=== PATIENT | male | born 1960 | race Caucasian/White ===

== ENCOUNTER 2017-12-21 10:53 | Outpatient (CLI) | payer MEDICAID, SELFPAY ==
--- NOTE | 2017-12-21 12:00 | DI.US_ITS ---
SYMPTOMS/DIAGNOSIS: CALF PAIN, LEFT, M79.662, POSTERIOR KNEE PAIN, RECENTLY DROVE 3000 MILES DUPLEX VENOUS ULTRASOUND, LEFT LOWER EXTREMITY: Duplex evaluation of the deep venous system of the left lower extremity was performed according to the usual protocol. There is no evidence of deep venous thrombosis. Note is made of a Montero's cyst measuring roughly 23 x 43 x 26 mm in diameter.
--- NOTE | 2017-12-21 12:00 | DI.RAD_ITS ---
SYMPTOMS/DIAGNOSIS: LEFT KNEE PAIN, M25.562 LEFT KNEE: Three views were obtained. There are degenerative changes of the knee with quite prominent hypertrophic spurring. No other bony abnormality seen.
== END 2017-12-21 11:13 ==
PROVIDERS: PCP Physician Assistant Medical; Visit Provider Specialist/Technologist Athletic Trainer
DX: M25.562 Pain in left knee (principal); M17.12 Unilateral primary osteoarthritis, left knee; M79.662 Pain in left lower leg
CPT/HCPCS: 73562; 93971

== ENCOUNTER 2018-01-23 08:55 | Outpatient (REF) | payer MEDICAID, SELFPAY ==
[2018-01-23 20:49] LABS: Anion Gap 10.3 mmol/L (3-11); BUN 16 mg/dL (7-18); CO2 26.7 mmol/L (21.0-32.0); CREATININE 1.14 mg/dL (0.70-1.30); Calcium 9.1 mg/dL (8.5-10.1); Chloride 100 mmol/L (98-107); Cholesterol 197 mg/dL (50-200); Glucose 122 mg/dL (70-100); HDL Cholesterol 39 mg/dL (40-60); LDL CHOLESTEROL 137 mg/dL (<100); Potassium 3.7 mmol/L (3.5-5.1); Sodium 137 mmol/L (136-145); Triglyceride 140 mg/dL (30-150)
== END 2018-01-23 09:15 ==
LOC: NCHCN 08:55
PROVIDERS: PCP Physician Assistant Medical; Visit Provider Nurse Practitioner Family
DX: I10 Essential (primary) hypertension (principal); Z79.4 Long term (current) use of insulin; E11.9 Type 2 diabetes mellitus without complications; F32.9 Major depressive disorder, single episode, unspecified
CPT/HCPCS: 80048; 80061; 83721

== ENCOUNTER 2018-04-30 09:21 | Outpatient (REF) | payer MEDICAID, SELFPAY ==
[2018-04-30 21:33] LABS: Cholesterol 119 mg/dL (50-200); HDL Cholesterol 32 mg/dL (40-60); LDL CHOLESTEROL 63 mg/dL (<100); Triglyceride 154 mg/dL (30-150)
[2018-05-02 10:26] LABS: ALT 35 U/L (12-78); AST 25 U/L (15-37); Creatine Kinase 210 U/L (39-308)
== END 2018-04-30 09:41 ==
LOC: NCHCN 09:21
PROVIDERS: PCP Physician Assistant Medical; Visit Provider Nurse Practitioner Family
DX: E78.5 Hyperlipidemia, unspecified (principal)
CPT/HCPCS: 80061; 82550; 83721; 84450; 84460

== ENCOUNTER 2018-09-16 10:47 | Outpatient (REF) | payer MEDICAID, SELFPAY ==
[2018-09-16 22:24] LABS: Anion Gap 13.1 mmol/L (3-11); BUN 20 mg/dL (7-18); CO2 22.9 mmol/L (21.0-32.0); CREATININE 0.98 mg/dL (0.70-1.30); Calcium 8.6 mg/dL (8.5-10.1); Chloride 101 mmol/L (98-107); Glucose 174 mg/dL (70-100); Potassium 3.7 mmol/L (3.5-5.1); Sodium 137 mmol/L (136-145)
== END 2018-09-16 11:07 ==
LOC: NCHCN 10:47
PROVIDERS: PCP Physician Assistant Medical; Visit Provider Nurse Practitioner Family
DX: R42 Dizziness and giddiness (principal); I10 Essential (primary) hypertension; H93.13 Tinnitus, bilateral; H91.90 Unspecified hearing loss, unspecified ear
CPT/HCPCS: 80048; 84443

== ENCOUNTER 2019-08-25 12:08 | Outpatient (REF) | payer MEDICAID, SELFPAY ==
[2019-08-25 20:26] LABS: ALT 50 U/L (16-63); AST 32 U/L (15-37); Anion Gap 11.2 mmol/L (3-11); BUN 21 mg/dL (7-18); CO2 24.8 mmol/L (21.0-32.0); CREATININE 1.17 mg/dL (0.70-1.30); Calcium 8.8 mg/dL (8.5-10.1); Calculated LDL 63 mg/dL (<100); Chloride 103 mmol/L (98-107); Cholesterol 116 mg/dL (<200); Glucose 140 mg/dL (74-106); HDL Cholesterol 34 mg/dL (40-60); Potassium 3.7 mmol/L (3.5-5.1); Sodium 139 mmol/L (136-145); Triglyceride 96 mg/dL (<150)
[2019-08-25 20:43] LABS: Creatine Kinase 568 U/L (39-308)
== END 2019-08-25 12:28 ==
LOC: NCHCN 12:08
PROVIDERS: PCP Physician Assistant Medical; Visit Provider Nurse Practitioner Family
DX: E11.9 Type 2 diabetes mellitus without complications (principal); I10 Essential (primary) hypertension; M75.100 Unspecified rotator cuff tear or rupture of unspecified shoulder, not specified as traumatic; M19.90 Unspecified osteoarthritis, unspecified site
CPT/HCPCS: 80048; 80061; 82550; 83036; 84450; 84460

== ENCOUNTER 2019-10-20 08:21 | Outpatient (REF) | payer MEDICAID, SELFPAY ==
[2019-10-20 20:21] LABS: HDL Cholesterol 40 mg/dL (40-60); LDL CHOLESTEROL 77 mg/dL (<100)
[2019-10-20 20:34] LABS: Creatine Kinase 239 U/L (39-308)
== END 2019-10-20 08:41 ==
LOC: NCHCN 08:21
PROVIDERS: PCP Physician Assistant Medical; Visit Provider Nurse Practitioner Family
DX: E78.5 Hyperlipidemia, unspecified (principal)
CPT/HCPCS: 82550; 83721; 83718

== ENCOUNTER 2020-06-23 10:26 | Outpatient (REF) | payer MEDICAID, SELFPAY ==
[2020-06-23 15:46] LABS: Anion Gap 11.3 mmol/L (3-11); BUN 21 mg/dL (7-18); CO2 27.7 mmol/L (21.0-32.0); CREATININE 1.2 mg/dL (0.70-1.30); Calcium 8.9 mg/dL (8.5-10.1); Chloride 100 mmol/L (98-107); Glucose 227 mg/dL (74-106); Potassium 3.4 mmol/L (3.5-5.1); Sodium 139 mmol/L (136-145)
== END 2020-06-23 10:27 | disposition home or self-care (01) ==
LOC: NCHCN 10:26
PROVIDERS: PCP Physician Assistant Medical; Visit Provider Nurse Practitioner Family
DX: I10 Essential (primary) hypertension (principal)
CPT/HCPCS: 80048

== ENCOUNTER 2020-10-26 11:57 | Outpatient (REF) | payer MEDICAID, SELFPAY ==
[2020-10-26 15:56] LABS: ALT 50 U/L (16-63); AST 23 U/L (15-37); CREATININE 1.2 mg/dL (0.70-1.30); Calculated LDL 75 mg/dL (<100); Cholesterol 140 mg/dL (<200); HDL Cholesterol 44 mg/dL (40-60); Potassium 3.8 mmol/L (3.5-5.1); Triglyceride 109 mg/dL (<150)
== END 2020-10-26 11:58 | disposition home or self-care (01) ==
LOC: NCHCN 11:57
PROVIDERS: PCP Physician Assistant Medical; Visit Provider Nurse Practitioner Family
DX: E78.5 Hyperlipidemia, unspecified (principal); I10 Essential (primary) hypertension
CPT/HCPCS: 80061; 82565; 84132; 84450; 84460

== ENCOUNTER 2021-06-24 01:41 | Outpatient (CLI) | payer MEDICAID, SELFPAY ==
[2021-06-24 08:28] LABS: Glucose 172 mg/dL (74-106)
[2021-06-26 09:25] LABS: Fructosamine 246 mcmol/L (200 - 285)
[2021-06-27 11:43] LABS: C-Peptide 5.8 ng/mL (1.1 - 4.4)
== END 2021-06-24 01:42 | disposition home or self-care (01) ==
LOC: LBO 01:41
PROVIDERS: PCP Physician Assistant Medical; Visit Provider Internal Medicine Endocrinology, Diabetes & Metabolism
DX: E11.65 Type 2 diabetes mellitus with hyperglycemia (principal)
CPT/HCPCS: 36415; 82947; 82043; 82570; 82985; 83036; 84681

== ENCOUNTER 2021-06-24 12:05 | Outpatient (REF) | payer MEDICAID, SELFPAY ==
--- OUTSIDE RECORDS SUMMARY | 2021-06-24 12:10 | XMS_ITS ---
:1960 Author Care Team Providers Name Role Phone GAMA NORMAN Primary Care Provider [phone] GAMA NORMAN Referring Provider [phone] Allergies Code Code System Name Reaction Severity Status Onset NKDA ? Medications Name Status Start Date Stop Date ? ? alcohol swabs Active ? Not available Aleve 220 mg capsule Completed ? 03/15/2021 Take 2 capsules every day by oral route at bedtime. ascorbic acid (vitamin C) 1,000 mg tablet Active ? Not available Take 1 tablet every day by oral route. aspirin 81 mg tablet,delayed release Active ? Not available Take 1 tablet every day by oral route. chlorthalidone 50 mg tablet Active ? Not available Take 1 tablet every day by oral route. cholecalciferol (vitamin D3) 250 mcg (10,000 unit) capsule Activ e ? Not available Take 1 capsule by oral route. glipizide ER 2.5 mg 24 hr tablet,extended release Active ? Not available Take 1 tablet twice a day by oral route. hydrochlorothiazide 25 mg tablet Completed ? 03/15/2021 Take 1 tablet every day by oral route. indomethacin 50 mg capsule Completed ? 03/15 Take 1 capsule 3 times a day by oral route with meals. Jardiance 10 mg tablet Active ? Not avail able Take 1 tablet every day by oral route. Jardiance 25 mg tablet Active ? Not avail able Take 1 tablet every day by oral route. lisinopril 40 mg tablet Active ? Not avai lable Take 1 tablet every day by oral route. loratadine 10 mg tablet Active ? Not avai lable Take 1 tablet every day by oral route. metformin 500 mg tablet Active ? Not avai lable Take 2 tablets every day by oral route. naproxen 375 mg tablet Active ? Not avail able Take 2 tablets twice a day by oral route as needed. OneTouch Delica Lancets Active ? Not avai lable OneTouch Ultra Test strips Active ? Not a vailable test daily OneTouch UltraMini Active ? Not available test daily rosuvastatin 10 mg tablet Active ? Not av ailable Take 1 tablet every day by oral route. zinc 25 mg tablet Active ? Not available Take 1 tablet every day by oral route. Problems Name Status Onset Date Source ? Type 2 Diabetes Mellitus Active 04/04/2016 ? Obesity Active 04/04/2016 ? Stress Active 04/04/2016 ? Depressive Disorder Active 04/04/2016 ? Hypertensive Disorder Active 04/04/2016 ? Acute Sinusitis Active 04/04/2016 ? Pneumonia Active 04/04/2016 ? Osteoarthritis Active 04/04/2016 ? 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 Fatigue Active 04/04/2016 ? Taste Sense Altered Active 04/04/2016 ? Disorder of Smell Active 04/04/2016 ? Edema of Lower Extremity Active 04/04/2016 ? Cough Active 04/04/2016 ? Tinnitus Active 03/10/2021 ? Total Knee Replacement Active 03/10/2021 ? Type II Diabetes Mellitus Uncontrolled Active ? 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 Mellitus Body Mass Index 40+ - Severely Obese Active 03/28/2021 ? Hyperlipidemia Active ? ? Idiopathic Peripheral Neuropathy Active ? ? Benign Paroxysmal Positional Vertigo Active ? ? Sensorineural Hearing Loss Active ? ? Shoulder Pain Active ? ? 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 ? Disorders Radiculitis Active ? ? Procedures None recorded. Results Lab Results Date Name Specimen Result Interpretation Description Value Range Status Address ? 03/28/2021 Glucose, Blood ? Blood 169 ? ? [facility] - Fingerstick, capillary Glucose: Specialty: Blood mg/dl [address] [facility] Past Encounters 03/28/2021 Type II Diabetes Mellitus Uncontrolled; Polyneuropathy Due to Type 2 Diabetes Mellitus; Body Mass Index 40+ - Severely Obese; Administration of Influenza Vaccine Bernard Pelletier MD-FACE: [address] [place] [address], Ph. Social History Tobacco Smoking Status Never Smoker Notes: 03/28/21 Vaccine List Vaccine Type influenza, injectable, quadrivalent 04/16/2018 12/10/2019 pneumococcal polysaccharide PPV23 04/16/2018 Tdap 08/31/2011 08/31/2011 08/19/2020 zoster recombinant 08/05/2018 12/10/2019 Plan of Care Patient Goals Hemoglobin A1c low 7% some benefit 6.5% but increased risk of HYpoglcyemia Fasting BG below 150 Two hour post meal BG below 200 mg/dl Avoid Severe Hypoglycemia Avoid Moderate Hypoglycemia BP 130/80 Urine Microablumin/creat < 30 mcg/mg Lipids HDL > 45 LDL <70 Patient Instructions HEALTHY EATING HABITS ----Limited Carbohydrate: a) Limit Bread, Noodles, Pasta, Potato, Rice and other high carbohydrate foods. b) Infrequent eat ice cream, cake, pies , other high carbo dessert items ---Limited Saturated Fat ---No added salt: ----High Fiber ----More Green Vegetables (except green peas) ----Fruit, But Limit amounts (one apple, one peach, one pear, 1/2 banana, 12 grapes) ---- Take one large glass of water befor e each meal EXERCISE Move, Lift, Stretch -------MOVE (walk, hike, treadmill, swim , bicycle, snow shoe, mow lawn, others) -------LIFT: Upper body (arms) - 1 -2#, lower body (leg) limited squats, stairs, step ------STRETCH: Stretch: Gently, all area s from neck to toes. ORAL MEDICATIONS: ----Metformin 1000 mg twice daily --- Glipizide 2.5 mg twice daily ---- DPP$ Heydi Onglyza Tradjealbinoa NO B enefit for Weight loss. --- Jardience 10 mg each mornnig. x two months then two 10 mg each monring x 15 days t hen can increase to 25 mg each morning. GLP-1 AGONIST Injections ??? Lower GLuco se, with weight loss, and low risk of Hypoglycemia. -----Victoza mg inject once daily pre br eakast ---- Bydureon Trulicity Ozempic mg injec t once weekly GLPI1 Agonist ? ----- Rybelsus one tab daily INSULIN THERAPY: Not yet. BG TEST PLAN Test Blood Sugar prebreakfast every Even Day. Then test paired BG pre/ 2hour post meal s Test pre breakfast and 2 hours post jaycee kfast every 4nd day of sixteen days ( of : ) [Total 2 times] Test Pre and 2 hours Post lunch every 12 th day of sixteen days ( of ) [total 2 times] and Test Blood Sugar pre Supper and 2 ho urs Post supper every 8th day ( 8, 16, 24, ) . [total; 3 times] The daily pre breakfast blood sugar will document your fasting Glucose Control. The paired pre and 2 hour Post meal will document you Glucose Control after Meal Carbohydrate Load Be prepared to Lower Glipizide if Low Bl ood Sugar Occurs to one daily Reminders Provider Appointments None recorded. ? ? Lab None recorded. ? ? Referral None recorded. ? ? Procedures None recorded. ? ? Surgeries None recorded. ? ? Imaging None recorded. ? ? Vitals 03/28/2021 09:00AM ENDOCRINOLOGY NEW PATIENT 58 Height Weight BMI Blood Pressure 172.72 cm 130.09 kg 43.6 kg/m2 122/82 mm[Hg] 04/05/2016 04:30PM NEW PATIENT Height Weight BMI Blood Pressure 173.99 cm 132.68 kg 43.8 kg/m2 123/87 mm[Hg]
--- OUTSIDE RECORDS SUMMARY | 2021-06-24 12:10 | XMS_ITS | Encounter Summary ---
:1960 Author Care Team Providers Name Role Phone Gloria Zapien Primary Care Provider [phone] Gloria Zapien Referring Provider [phone] Reason for Visit DIABETES MELLITUS/NON INSULIN DEPENDENT Assessment and Plan 1. Type II diabetes mellitus unc ontrolled Problems of both Hyperglycemia andHypoglycemia with spikes over 200s during days but some symptomatic low glucose at other times. Step #1 titrate Jardiance to 25 mg rony y may decrease Glipizide if hypoglycemia Step #2 then add GLP1 Ozempic 0.25, Step #3 titrate up GLP1 again decrease/ or stop Glipizide as ne eded. ? fructosamine, serum ? glucose, serum or plasma ? C-peptide, serum ? microalbumin/creatinine, r atio panel, urine ? HbA1c (hemoglobin A1c), bl ood ? Jardiance 25 mg tablet 2. Polyneuropathy due to type 2 diabetes mellitus Absent ankle jerks despite Patricia drassic 3. Body mass index 40+ - severel y obese Would like to facilitate weigh t loss. Ideally would treat with SGLT2 (Jardianc e) and GLP1 (facundo Semaglutide, OZempic) --and stop Sulfonyurea ? body mass index: care inst ructions ? learning about healthy raza ght ? glucose, fingerstick, bloo d 4. Administration of influenza v accine Patient is without egg allergi es. Pt was informed of benefits and risks of seasonal influenza vaccination and VIS p aper was handed out. A verbal informed consent was obtained as patient would li ke to proceed with the vaccine- No immediate complications . Patient was informed to call if any unexpected or serious reaction. Discussion Note Diabetes Mellitus Type 2 complicati ions Microvascular (Nerves, Eyes, and Kidney) These can be present at diagnosis. Nerve and Kidney Disease may develop with Prediabetes. All are more likely with greater severity and longevity of Diabetes 1. Nerves - Neuropathy actually many typ es Polyneuriopathy is most common and affec ts feet, toes first (longest nerves). May be no symptoms. May have pain, burning, tingling and /or numbness. Numbness can progress from mild to severe and predisp oses to Ulceration since patient does no t feel ongoing feet injury. This may lead to infection, and ultimately to amputaiton DIAbetes is Leading cause of Nontraumatic Amputation in [place]. Improved Diabetic control lowers risk of Neuropathy. 2. Eyes - While Retinopathy is unique to Diabetes, patients are also more likely to have other eye probelms facundo. Cataracts. Diabetic Retinal disease (retinopathy) involves very small blood vessels in ba ck of eyes, which may become diseased, l eak protein, and bleed. DIABETES is Leading cause of Loss of Vision in [place]. 3. Kidneys Disease (neuropathy) Gradually Diabetes may cause damage to b lood vessels in the kidney, especially the Glomerulus, a structure which filters blood into urine and is critical to kidney function. Intially there may be very m ild protein leak through this filter. La ter Protein leak may become huge. Eventually diabetic kidney disease may progress to renal failure, End stage Renal Failure requires either dialysis or transplant ; otherwise patient will . DIABETES i s Leading cause of Renal Failure in the [place]. Macrovascular (Heart, Brain, Leg) *all of these conditions are more common with High Cholesterol., High Blood PRessure, Cigarette Smoking and Age. Diabetes only increases Likelihood in conjunction with other factors. 1. Heart Disease CORONARY ARTERY DISEASE This complication leads to narrowing or blockage of the Coronary Arteries which are needed to supply heart muscle with blood. THis may present as ANGINA, exertional c hest/Jaw/or Arm pain. or may present with Heart Attack or may be silent or Sudden .. Sometimes Diabetic may develop these problems with only increased shortn ess of breath or increasing fatigue with activity. AFTER AGE 50 yo, Heart Disease is the Most comomon Complication of Diabetes. ------* Control of Blood Sugar, Control of Blood Pressure, control of Cholesterol facundo LDL Cholesterol, Cessation of Smoking may all help to lower Risk.. 2. Brain: Stroke or Cerebral Infarction This complication leads to narrowing or blockage of the Cerebral Arteries which supply blood to the brain. This may present with TIAs spells of tem porary brain dysfunction (clumsy hand, slurred speech, difficulty walking, difficulty with vision and many other symptoms that come and go. OR This compliation ma y present with STROKE, eg. Sudden paraly sis of one side of body, and/or difficulty speaking, and many other neurologic symptoms. ------*Control of Blood Pressure, contro l of Cholesterol facundo LDL Cholesterol, Cessation of Smoking may all help to lower Risk.. 3. LEgs -PVD Peripheral Vascular Disease This complication leads to narrowing or blockage of the Peripheral Arteries which supply blood to th LEgs. THis may present with spells of claudica tion, pain in leg, calves, which is triggered by use of legs. OR Gangrene, This may invollve only toes, below knees, or whole leg depending on severity of disease. ------* Control of Blood Pressure, contr ol of Cholesterol facundo LDL Cholesterol, Cessation of Smoking may all help to lower Risk.. Plan of Care Patient Goals Hemoglobin A1c [...] Glipizide 2.5 mg twice daily ---- DPP$ Luisliza Onglyza Tradjealbinoa NO B enefit for Weight [...] and 2 hours post jaycee kfast every 4 day of sixteen days ( of : ) [Total 2 times] Test Pre and 2 hours Post lunch every 12 day of sixteen days (days of month 12, 28 ) [total 2 times] and Test Blood [...] Occurs to one daily Reminders Provider Appointments Endocrinology Kaylie Pelletier, Follow up 30 07/12/2021 MD-FACE 4:00PM Lab Glucose, Rhc - Sp ecialty Fingerstick, Blood 03/28/2021 ? Fructosamine, Nor theastern Serum 06/15/2021 [facility] ? Glucose, Serum No rtheastern or Plasma 06/15/2021 [facility] ? C-peptide, Arti buckley Serum 06/15/2021 [facility] ? Thomas baker Microalbumin/creatinine, 06/15/2021 [facility] Ratio Panel, [facility] ? HbA1C Thomas baker (Hemoglobin a1C), Blood 06/15/2021 [facility] Referral None recorded. ? ? Procedures None recorded. ? ? Surgeries None recorded. ? ? Imaging None recorded. ? ? Medications Name Start Date ? ? alcohol swabs ? ascorbic acid (vitamin C) 1,000 mg tablet ? Take 1 tablet every day by oral route. aspirin 81 mg tablet,delayed release ? Take 1 tablet every day by oral route. chlorthalidone 50 mg tablet ? Take 1 tablet every day by oral route. cholecalciferol (vitamin D3) 250 mcg (10,000 unit) cap mckenzie ? Take 1 capsule by oral route. glipizide ER 2.5 mg 24 hr tablet,extended release ? Take 1 tablet twice a day by oral route. Jardiance 10 mg tablet ? Take 1 tablet every day by oral route. Jardiance 25 mg tablet ? Take 1 tablet every day by oral route. lisinopril 40 mg tablet ? Take 1 tablet every day by oral route. loratadine 10 mg tablet ? Take 1 tablet every day by oral route. metformin 500 mg tablet ? Take 2 tablets every day by oral route. naproxen 375 mg tablet ? Take 2 tablets twice a day by oral route as needed. OneTouch Delica Lancets ? OneTouch Ultra Test strips ? test daily OneTouch UltraMini ? test daily rosuvastatin 10 mg tablet ? Take 1 tablet every day by oral route. zinc 25 mg tablet ? Take 1 tablet every day by oral route. Medications Administered None recorded. Vitals Height Weight BMI Blood Pressure 5 ft 8 in 286.8 lbs 43.6 kg/m2 122/82 mm[Hg] Results Lab Results Date Name Specimen Result Interpretation Description Value Range Status Address ? 03/28/2021 Glucose, Blood ? Blood 169 ? ? Rhc - Fingerstick, capillary Glucose: Specialty: Blood mg/dl [facility] Allergies Code Code System Name Reaction Severity Onset NKDA ? ? ? Problems Name Status Onset Date Source ? [...] ? Type II Diabetes Mellitus Uncontrolled Active 2 ? Polyneuropathy Due to Type 2 Diabetes [...] Radiculitis Active ? ? Procedures None recorded. Vaccine List Vaccine Type influenza, injectable, quadrivalent 04/16/2018 12/10/2019 pneumococcal polysaccharide PPV23 04/16/2018 Tdap 08/31/2011 08/31/2011 08/19/2020 zoster recombinant 08/05/2018 12/10/2019 Social History Tobacco Smoking Status Never Smoker Notes: 03/28/21 Have you travelled outside of [facility] in the past 14 days? Have you received the covid vaccine N No ravin: Pt is bypassing. this year? (If so, document vaccination in Vaccine Module in [place]) Have you experienced any of the N following symptoms in the past 48 hours? Fever/Chills, Cough, Shortness of breath or difficulty breathing, fatigue, muscle or body aches, headache, new loss of taste or smell, sore throat, congestion or runny nose, nausea or vomiting and/or diarrhea Has tobacco cessation counseling been N provided? Are you able to care for yourself? Y Have you had any vaccines in the last N month or do you have any vaccines scheduled? Are you currently waiting on results N of a COVID-19 test? Within the past 14 days, have you N been in close physical contact (6 feet or closer for a cumulative total of 15 minutes) with anyone that is known to have laboratory-confirmed COVID-19? OR Anyone who has any symptoms consistent with COVID-19? Are you isolating or quarantining N because you may have been exposed to a person with COVID-19 or are worried that you may be sick with COVID-19? Do you or have you ever used any N other forms of tobacco or nicotine? Family History Relation Problem Onset Age of Age Notes Father Family history of 47 73 DM2 d of diabetes mellitus RF prior t o CABG Father Family history of (No N/A (No Notes) hyperlipidemia Information) Sister Family history of 45 N/A DM now 67 diabetes mellitus last 1.5 y ears lost taste. lost 100# Off Metformin. BG normal Brother Family history of 45 N/A DM2 69 M ikke diabetes mellitus Insulin, +++Neuropathy, +ME +CHF Brother Family history of (No N/A Eflipe carolyn or ME ischemic heart disease Information) Brother Family history of (No N/A (No Notes) hyperlipidemia Information) Mother Family history of cancer (No 72 Sma ll cell Lung Information) canc Mother Family history of (No N/A (No Notes) hyperlipidemia Information) Functional Status Unknown. Past Encounters 03/28/2021 Type II Diabetes Mellitus Uncontrolled; Polyneuropathy Due to Type 2 Diabetes Mellitus; Body Mass Index 40+ - Severely Obese; Administration of Influenza Vaccine Bernard Pelletier MD-FACE: [address] [facility], [place] [address], Ph. History of Present Illness Note: <div>This 60 year old male comes for initial Endocrine visit for Evaluation and Management of uncontrolled Diabetes Mellitus Type 2.</div><div>
</div><div>Jono recalls diagnosis of diabetes at age [age] years old. </div><div>Initially he was identified during routine testing of fasting blood sugar due to his family history X had stroke. quit busineess. Health went down. Went to Doc. Not so much Thirst, Frequwnt urination. FH++ Dad, Broth, Sist. DM </div><div>I</div><div>At time of diagnosis [place] was treated as out patient diet, exercise, metformin. one a day, then two a days, then two twice dailyh</div><div>Later added Glipizide. two in AM low duign day, then spike at night</div><div>Then GLipizide twice daily . worked for awhile. Not working for past 1.5 year.</div><div>Recently started on Jardiance 10 mg daily. for past two to three weeks.</div><div>
</div><div>
</div><div>Left Shoulder replaced 11 Feb 2021</div&gt ;<div>
</div><div>
</div><div>At this time patient has no symptomatic polyuria, polydipsia.</div><div> </div><div>EDUCATION:</div><div>He has met with a Hematology Oncology Consultant to review appropriate eating habits. Infrequent. </div><div>
</ div><div> </div><div>COURSE:</div><div>He responded well to initial therapy and BG remained well controlled for xx months years.</div><div>He did not respond well to initial therapy and another medication insulin was added.</div><div> </div><div>CUR RENT STATUS:</div><div>--Nutrition:</div><div>His current nutrition treatment plan include carbohydrate controlled diet, three meals daily </div><div>Typically eats either two slices toast, or two donuts. with Coffee. only rarely dry cereal or , eggs neves sausage for breakfasts</div><div>Snack - 0</div><div>Lunch one sandwich or late large meal </div><div>snack - some pretzel rods 2-3 </div><div>Supper - usuall 5 pm main meal</div><div> , one meat such as chicken, pork, beef or fish, </div><div>0-1 serving of corn, noodles pasta, potato, or rice (once a month) </div><div>0-1 serving of 0-sweet potato, ++carrots, </div><div>1 -2 servings of green vegetables (jspinach, peas, green beans, cauligflour</div><div>NO Dessert. Drink Mixed Drink </div><div>Sna ck Bedt vito cracker and PB.</div><div> He never s weighs and measures his foods. </div><div>He has deserts such as ice cream, cake, pie rarely. Bake SF, add splenda. </div><div>
</div><div>---ACTIVITY:</div><div>His current Activity treatment plan includes [facility]One for two years due to Bad shoulder. </div[place]. </div><div> Summer; Work in shop. </div><div>
</div><div>---Oral Hypoglycemic Medications:</div><div>Her current oral medication plan includes</div><div>#1 a Biguanide ( Metformin 1000 mg twice daily</div><div>#2 , a oral insulin secretagogue ( glipizide 2.5 mg ER BID ), a</div><div>#3 a SGLT2 inibitor Jardiance ( empaglifloxin). 25 mg one daily</div><div>
</div><div>GLP-1 Agonist Therapy: </div><div>He does not take a injectable GLP1 agonist </div><div>.</div><div>--INSULIN </div><div> ----Never </div><div>
</div><div> </div><div>MEASURES of GLYCEMIC CONTROL:</div><div>Tests BG once daily, evdery morning.. He uses an One Touch Ultra </div><div>Keeps log of BGs and brought to this visit. </div><div> </div><div>pre breakfast BG</div><div>2 hour post breakfast BG not done</div><div>pre lunch BG not done</div><div>2 hour post lunch BG not done</div><div>pre supper BG:</div><div>2 hour post supper BG: not done</div><div>bedtime BG: notdone</div><div>2 to 3 AM BG: not done</div><div>(copy of logs, home BG records scanned into Chart) </div><div> Sensor Readings </div><div>Patient does not uses a Continuous glucose sensor</div><div>
</div><div>
</div><div> Labs </div><div>Mos t [id number] Prior HgbA1c</div><div>Most recent Fructosamine: not done Prior Fructosamine: not done</div><div> </div><div>Complications:</div><div>#1 Nerve </div><div>He reports normal sensation and absence of any pain in both feet. . He has no calluses, red areas, sores or ulceration on either foot. He describes no burning pain, sensitivity to touch in both feet. He does not see sees a zone maintenance technician </div><div>
</div><div>#2 Eye</div><div>He has had yearly exam with an registration scheduling specialist since diagnosis of diabetes. He has had no blurring, no change in vision. He has glasses for reading and for seeing distant objects. He had ear,lycataracts. He has never had laser treatment for diabetic eye disease.</div><div>
</div><div>#3 Kidney</div><div>He has no known history of diabetic kidney disease. </div><div>
</div><div>
</div><div>#4 Vascular - Heart</div><div>He has never had angina or heart attack. He has had an ETT at 48. OKAY. . </div><div>
</div><div>#5 Vascular - Brain</div><div>He has had mild mini stroke. woke up dizzy. 26 days at [facility]. </div><div>
</di v><div>#6 Vascular -Peripheral</div><div>He has never had intermittent claudicat ion or other symtomatic ischemic vascular disease affecting his legs. </div><div>
</div><div>Concurrent Metabolic Problems</div><div>#1 Hypertension</div><div> Chlorthalidone, Lisinopirl 40 mg</div><div>#2 Hyperlipidemia</div><div> Rosuvastatin 10 mg </div><div>#3 Obesity</div><div>
</div><div>#4 Thyroid Disease</div><div>
</div><div>
</div><div>Labs from PCP, other Providers</div><div>Date</div><div>fasting Glucose</div><div>Hgb A1c</div><div>Lipids TC Trig HDL LDL </div><div>BUN Creat</div><div>Microalbumin/Creatinine Ratio</div><div>TS H</div><div>
</div><div>ENDOCRINOLOGY </div><div>Jan 2021 A1c 7.1% </div><div>Jaardiance 10 mg Glipizide 2.5 mg one dialy </div><div>Weight 295# Hegt 68 </div><div>ROsuvastatin 10 g </div><div>ASA</div> Review of Systems ? [Global] Comprehensive Adult ROS Reported By: Patient Constitutional: Constitutional: no fever, no night sweats, no significant weight loss, no exercise int olerance, no fatigue Eyes: Eyes: no vision change, no i rritation; No blurring. No double vision. No discharge Ear, Nose, Mouth, Throat: Ears: no difficulty hearing, no ear pain. Nose: no sinus problems; No difficulty smel ling. Mouth/Throat: no sore throat, no snoring, no dry m outh, no oral ulcers, no oral abnormalities, no teeth prob lems Cardiovascular: Cardiovascular: no arm pain at rest, no arm pain on exertion, no shortness of br eath when walking, no shortness of breath when lying down, n o palpitations, no known heart murmur; No chest pain, heavi ness, pressure, tightness, or discomfort with exertion Respiratory: Respiratory: no cough, no wh eezing, no shortness of breath, no coughing up blood, no sle ep apnea Gastrointestinal: Gastrointestinal: no abdomin al pain, no nausea, no vomiting, no constipation, n ormal appetite, no diarrhea; No heartburn Genitourinary: Genitourinary: no incontinen ce, no difficulty urinating, no hematuria, no increased freq uency; No breast swelling. Normal libido. No erectile difficulties Integumentary: Skin: no abnormal mole, no j aundice, no rashes; No excessive sweating. No exces sively dry skin. No hyperpigmentation. No hypop igmentation Musculoskeletal: Musculoskeletal: no muscle a ches, no arthralgias/joint pain, no back pain, no swell ing in the extremities; No swelling, warm, painful join ts. No limited joint range of motion Psychiatric: Psychiatric: no depression, no sleep disturbances, feeling safe in a relationship, no a lcohol abuse, no anxiety, no hallucinations, no suicidal thoughts Endocrine: Endocrine: ; No increased fa tigue, No temperature Intolerance Neurologic: Neurologic: no loss of consc iousness, no weakness, no numbness, no seizures, no di zziness, no headaches, no tremor, no muscle weakness Hematologic/Lymphatic: Hematologic/Lymphatic no swo llen glands, no bruising, no excessive bleeding Allergic/Immunologic: Allergy/Immunologic: no seas onal allergies Notes: <div> </div> Physical Exam ? General Adult Exam Reported By: Patient Constitutional: General Appearance: well-dev eloped, morbidly obese. Level of Distress: NAD. Ambulation: a mbulating normally Psychiatric: Insight: good judgement; Goo d insight. Mental Status: active and alert, normal mood, normal a ffect. Orientation: to time, to place, to person. Memory: remote me luis normal Head: Head: normocephalic, atrauma tic; No Reese facies, not plethoric Eyes: Lids and Conjunctivae: non-i njected, no discharge, no pallor; No lid edema. Pupils: PERRLA. E OM: EOMI. Lens: clear. Sclerae: non-icteric ENMT: Ears: no lesions on external ear, EACs clear, TMs clear. Nose: nares patent, no septal ramon ation. Lips, Teeth, and Gums: no mouth or lip ulcers, no bleeding g ums, normal dentition. Oropharynx: moist mucous membranes, no e rythema, no exudates Neck: Neck: supple, trachea midlin e, no masses. Lymph Nodes: no cervical LAD. Thyroid: no enlargement , non-tender, no nodules Lungs: Respiratory effort: no dyspn ea. Percussion: no dullness, flatness, or hyperresonance. Auscultat ion: good air movement, no wheezing, no rales/crackles, no rhonchi Cardiovascular: Apical Impulse: not displace d. Heart Auscultation: RRR, normal S1, normal S2, no murmurs, no ru bs, no gallops. Neck vessels: no carotid bruits Abdomen: Bowel Sounds: normal. Inspec tion and Palpation: soft, non-distended, no tenderness , no guarding, no rebound tenderness; No huge abdominal mass. Live r: non-tender, no hepatomegaly Musculoskeletal:: Motor Strength and Tone: nor mal, normal tone; Normal muscular bulk. Joints, Bones, and Muscles: normal movement of all extremities, no contractures, no bony abnorm alities; No overt synovitis. No tenderness over long bones o f arms and legs. Extremities: no cyanosis, no edema; Feet: no excessive callus, no redness, no ulceration. Toes-not thick or yellowed Neurologic: Gait and Station: normal gai t, normal station. Cranial Nerves: grossly intact. Sensation: ; Vibration sense intact to 128 mHz Tuning fork. Reflexes: DTRs abnormal, diminished; No delay in DTR relaxation timeANkle jerks a bsent even with Jendrassic maneuver. Coordination and Cerebellum: no tremor Skin: Inspection and palpation: no rash, no induration, good turgor, no jaundice; no red, wide stria e. No remarkable purpura. No acanthosis nigricans. Nails: normal Back: Thoracolumbar Appearance: no rmal curvature; No tenderness over spinous processes
[2021-06-24 12:38] LABS: COMMENT (LAB VIEW ONLY) 75.26 mg/dL
== END 2021-06-24 12:06 | disposition home or self-care (01) ==
LOC: LBN 12:05
PROVIDERS: PCP Physician Assistant Medical; Visit Provider Internal Medicine Endocrinology, Diabetes & Metabolism
DX: E11.65 Type 2 diabetes mellitus with hyperglycemia (principal)
CPT/HCPCS: 82043; 82570

== ENCOUNTER 2021-11-10 17:46 | Outpatient (REF) | payer MEDICAID, SELFPAY ==
[2021-11-10 16:52] LABS: Hemoglobin A1C 6.3 % (<5.7)
[2021-11-10 16:53] LABS: ALT 51 U/L (16-63); AST 27 U/L (15-37); BUN 20 mg/dL (7-18); Calcium 9.7 mg/dL (8.5-10.1); Chloride 101 mmol/L (98-107); Estimated GFR 84.57 (mL/min/1.73m2); Glucose 153 mg/dL (74-106); HDL Cholesterol 39 mg/dL (40-60); LDL CHOLESTEROL 74 mg/dL (<100); Potassium 3.9 mmol/L (3.5-5.1); Sodium 139 mmol/L (136-145)
[2021-11-10 17:11] LABS: Creatine Kinase 224 U/L (39-308)
== END 2021-11-10 17:47 | disposition home or self-care (01) ==
LOC: NCHCN 17:46
PROVIDERS: PCP Physician Assistant Medical; Visit Provider Nurse Practitioner Family
DX: E11.9 Type 2 diabetes mellitus without complications (principal); E78.5 Hyperlipidemia, unspecified; I10 Essential (primary) hypertension; Z86.59 Personal history of other mental and behavioral disorders
CPT/HCPCS: 80048; 82550; 83721; 83036; 83718; 84450; 84460

== ENCOUNTER 2022-09-01 10:54 | Outpatient (CLI) | payer MEDICAID, SELFPAY ==
[2022-09-01 13:07] LABS: Anion Gap 11.7 mmol/L (3-11); BUN 16 mg/dL (7-18); CO2 25.3 mmol/L (21.0-32.0); CREATININE 1.2 mg/dL (0.70-1.30); Calcium 9.4 mg/dL (8.5-10.1); Chloride 102 mmol/L (98-107); Estimated GFR 67.53 (mL/min/1.73m2); Glucose 147 mg/dL (74-106); Potassium 3.7 mmol/L (3.5-5.1); Sodium 139 mmol/L (136-145)
[2022-09-01 13:09] LABS: COMMENT (LAB VIEW ONLY) 45.34 mg/dL; Microalb ug/mg Crea 7.1 ug/mg Cr
[2022-09-01 13:11] LABS: Hemoglobin A1C 6.1 % (<5.7)
== END 2022-09-01 10:55 | disposition home or self-care (01) ==
LOC: LBO 10:54
PROVIDERS: PCP Physician Assistant Medical; Visit Provider Internal Medicine Endocrinology, Diabetes & Metabolism
DX: E11.65 Type 2 diabetes mellitus with hyperglycemia (principal)
CPT/HCPCS: 36415; 80048; 82043; 82570; 83036

== ENCOUNTER 2023-01-25 02:02 | Outpatient (CLI) | payer MEDICAID, SELFPAY ==
[2023-01-25 09:51] LABS: Hemoglobin A1C 6.6 % (<5.7)
[2023-01-25 10:00] LABS: Anion Gap 13.5 mmol/L (3-11); BUN 19 mg/dL (7-18); CO2 24.5 mmol/L (21.0-32.0); CREATININE 1.2 mg/dL (0.70-1.30); Calcium 9.2 mg/dL (8.5-10.1); Chloride 100 mmol/L (98-107); Estimated GFR 67.53 (mL/min/1.73m2); Glucose 214 mg/dL (74-106); Potassium 3.5 mmol/L (3.5-5.1); Sodium 138 mmol/L (136-145)
== END 2023-01-25 02:03 | disposition home or self-care (01) ==
LOC: LBO 02:02
PROVIDERS: PCP Physician Assistant Medical; Visit Provider Internal Medicine Endocrinology, Diabetes & Metabolism
DX: E11.65 Type 2 diabetes mellitus with hyperglycemia (principal)
CPT/HCPCS: 36415; 80048; 83036

== ENCOUNTER 2023-08-15 04:58 | Outpatient (CLI) | payer MEDICARE, MEDICAID, SELFPAY ==
[2023-08-15 11:24] LABS: Anion Gap 9.5 mmol/L (3-11); BUN 18 mg/dL (7-18); CO2 26.5 mmol/L (21.0-32.0); CREATININE 1.1 mg/dL (0.70-1.30); Calcium 9.2 mg/dL (8.5-10.1); Chloride 101 mmol/L (98-107); Glucose 200 mg/dL (74-106); Potassium 3.8 mmol/L (3.5-5.1); Sodium 137 mmol/L (136-145)
[2023-08-15 12:43] LABS: Hemoglobin A1C 6.7 % (<5.7)
== END 2023-08-15 04:59 | disposition home or self-care (01) ==
LOC: LOS 04:58
PROVIDERS: PCP Physician Assistant Medical; Visit Provider Internal Medicine Endocrinology, Diabetes & Metabolism
DX: E11.42 Type 2 diabetes mellitus with diabetic polyneuropathy; E66.01 Morbid (severe) obesity due to excess calories
CPT/HCPCS: 36415; 80048; 83036

== ENCOUNTER 2024-02-05 19:49 | Outpatient (REF) | payer MEDICARE, MEDICAID, SELFPAY ==
[2024-02-05 19:00] LABS: Anion Gap 10.8 mmol/L (3-11); BUN 16 mg/dL (7-18); CO2 26.2 mmol/L (21.0-32.0); CREATININE 1.3 mg/dL (0.70-1.30); Calcium 9.2 mg/dL (8.5-10.1); Chloride 107 mmol/L (98-107); Estimated GFR 60.96 (mL/min/1.73m2); Glucose 124 mg/dL (74-106); Potassium 4.1 mmol/L (3.5-5.1); Sodium 144 mmol/L (136-145)
[2024-02-05 19:16] LABS: Hemoglobin A1C 6.3 % (<5.7)
[2024-02-05 19:20] LABS: Microalb ug/mg Crea 3.2 ug/mg Cr
== END 2024-02-05 19:50 | disposition home or self-care (01) ==
LOC: NCHCN 19:49
PROVIDERS: PCP Physician Assistant Medical; Visit Provider Family Medicine
DX: E11.9 Type 2 diabetes mellitus without complications (principal)
CPT/HCPCS: 80048; 82043; 82570; 83036

== ENCOUNTER 2024-07-01 13:21 | Outpatient (REF) | payer MEDICARE, MEDICAID, SELFPAY ==
[2024-07-01 17:33] LABS: Hemoglobin A1C 6.2 % (<5.7)
[2024-07-01 17:35] LABS: ALT 43 U/L (16-63); AST 25 U/L (15-37); Albumin 3.9 g/dL (3.4-5.0); Alkaline Phosphatase 57 U/L (46-116); Anion Gap 10.3 mmol/L (3-11); BUN 16 mg/dL (7-18); Bilirubin, Total 0.6 mg/dL (0.2-1.0); CO2 24.7 mmol/L (21.0-32.0); CREATININE 0.9 mg/dL (0.70-1.30); Calcium 9.1 mg/dL (8.5-10.1); Calculated LDL 79 mg/dL (<100); Chloride 104 mmol/L (98-107); Cholesterol 134 mg/dL (<200); Estimated GFR 94.19 (mL/min/1.73m2); Glucose 145 mg/dL (74-106); HDL Cholesterol 39 mg/dL (>or=40); Potassium 3.9 mmol/L (3.5-5.1); Sodium 139 mmol/L (136-145); Total Protein 6.5 g/dL (6.4-8.2); Triglyceride 83 mg/dL (<150)
[2024-07-02 18:46] LABS: PSA, Screening <0.1 ng/mL (<=4.5)
== END 2024-07-01 13:22 | disposition home or self-care (01) ==
LOC: NCHCN 13:21
PROVIDERS: PCP Physician Assistant Medical; Visit Provider Physician Assistant Medical
DX: I10 Essential (primary) hypertension (principal); Z13.1 Encounter for screening for diabetes mellitus; Z12.5 Encounter for screening for malignant neoplasm of prostate; E78.5 Hyperlipidemia, unspecified
CPT/HCPCS: 80053; 80061; 84153; 83036

== ENCOUNTER 2025-02-10 10:03 | Outpatient (REF) | payer MEDICARE, SELFPAY ==
[2025-02-10 15:48] LABS: ALT 42 U/L (10-49); AST 28 U/L (<34); Albumin 4.3 g/dL (3.2-5.0); Alkaline Phosphatase 68 U/L (46-116); Anion Gap 10.9 mmol/L (3-11); BUN 16 mg/dL (9-23); Bilirubin, Total 0.6 mg/dL (0.2-1.2); CO2 23.1 mmol/L (20.0-31.0); Calcium 9.4 mg/dL (8.3-10.6); Chloride 105 mmol/L (98-107); Glucose 160 mg/dL (74-106); Potassium 4.1 mmol/L (3.5-5.1); Sodium 139 mmol/L (136-145); Total Protein 7.1 g/dL (5.7-8.2)
[2025-02-10 15:52] LABS: TSH 2.13 uIU/mL (0.55-4.78)
[2025-02-10 15:58] LABS: Hemoglobin A1C 6.3 % (<5.7)
[2025-02-10 16:16] LABS: Microalb ug/mg Crea 5.6 ug/mg Cr
== END 2025-02-10 10:04 | disposition home or self-care (01) ==
LOC: NCHCN 10:03
PROVIDERS: PCP Physician Assistant Medical; Visit Provider Family Medicine
DX: E11.42 Type 2 diabetes mellitus with diabetic polyneuropathy (principal)
CPT/HCPCS: 80053; 82043; 82570; 83036; 84443